=== PATIENT | female | born 1980 | race Caucasian/White ===

== ENCOUNTER 2021-05-15 14:50 | Outpatient (CLI) | payer OTHER, SELFPAY ==
--- NOTE | ~2021-05-15 | XR_ITS ---
EXAMINATION: XR lumbar spine 2-3V DATE: 05/15/2021 15:11 INDICATION: Mid to lower back pain TECHNIQUE: Anteroposterior and lateral views of the lumbar spine, and cone-down lateral view of the l umbosacral junction were obtained. COMPARISON: None. FINDINGS: Alignment is normal. Vertebral body heights are normal. No fractures. Joint spaces are normal. T-shap ed IUD in the central pelvis. 3 mm calcification projecting over the expected location of the upper p ole of the right kidney suspicious for renal stone. Likely phlebolith in the pelvis. Normal bowel gas pattern. Visualized portions of the lung bases are clear with no pleural effusion. IMPRESSION: 1. No osseous abnormality. 2. Possible 3 mm right renal stone. 3. IUD. Reviewed, dictated and finalized at location A. LSTERY TRIMMER
--- NOTE | ~2021-05-15 | US_ITS ---
EXAMINATION: US renal BI DATE: 05/15/2021 15:22 INDICATION: Mid back pain. Kidney stone. TECHNIQUE: Multiple ultrasound grayscale images of the kidneys were obtained. COMPARISON: None. FINDINGS: The right kidney measures 10.9 x 4.9 x 5.1 cm. The left kidney measures 11.7 x 5.5 x 5.3 cm. The kidn eys demonstrate normal echogenicity. There is no hydronephrosis in either kidney. No shadowing renal stones identified. The bladder is normal with bilateral ureteral jets visualized on color Doppler. IMPRESSION: 1. Normal kidneys without hydronephrosis. Reviewed, dictated and finalized at location A. [employer] SALES CONSULTANT
== END 2021-05-15 14:51 | disposition home or self-care (01) ==
LOC: ANHIMG 14:52
PROVIDERS: PCP Internal Medicine; Visit Provider Emergency Medicine
DX: N20.0 Calculus of kidney (principal); M54.50 Low back pain, unspecified; Z97.5 Presence of (intrauterine) contraceptive device
CPT/HCPCS: 72100; 76775

== ENCOUNTER 2022-03-04 08:42 | Outpatient (CLI) | payer OTHER, SELFPAY ==
--- NOTE | ~2022-03-04 | MM_ITS ---
EXAMINATION: MM scrn tamela implant BI w cynthia HISTORY: Screening mammogram TECHNIQUE: Craniocaudal and mediolateral oblique 3-D tomosynthesis images with implant displacement a nd synthetic 2-D images were generated. Craniocaudal and mediolateral oblique views of the breasts wi thout implant displacement were obtained using full field digital mammography. CAD analysis was submi tted and interpreted. COMPARISON: No prior mammogram is available for comparison at this institution. BREAST PARENCHYMAL COMPOSITION: The breasts are heterogeneously dense, which may obscure small masses . FINDINGS: Status post bilateral augmentation mammoplasty. There is no evidence of suspicious mass, ca lcification, or architectural distortion to suggest malignancy in either breast. There has been no reaves spicious interval change. IMPRESSION: 1. No mammographic evidence of malignancy. 2. Recommend routine screening mammography in one year. BI-RADS Category 1: Negative Reviewed, dictated and finalized at location A. ENERGY MECHANIC
== END 2022-03-04 08:43 | disposition home or self-care (01) ==
PROVIDERS: PCP Internal Medicine; Visit Provider Emergency Medicine
DX: Z12.31 Encounter for screening mammogram for malignant neoplasm of breast (principal)
CPT/HCPCS: 77063; 77067